=== PATIENT | male | born 1965 | race African-American/Black ===

== ENCOUNTER 2018-09-24 09:30 | Emergency (ER) | payer MEDICARE, MEDICAID ==
[~2018-09-24] VITALS: Ht 185.4 cm; Wt 85.0 kg
[2018-09-24] MEDS ORDERED: SODIUM CHLORIDE 0.9% 1,000 ML IV ONE ×2 (11:05→12:53)
[2018-09-24 12:41] LABS: CHLORIDE 99 mEq/L (98-107)
[2018-09-24] MEDS ORDERED: IBUPROFEN 600MG TABLET PO STA (12:53)
[2018-09-24] MEDS ORDERED: SODIUM CHLORIDE 0.9% 500 ML IV ONE (12:53)
[2018-09-24 12:55] LABS: BASOPHILS % 0.8 % (0.0-2.0); EOSINOPHILS % 2.5 % (0.0-5.0); HEMATOCRIT. 45.8 % (42.0-52.0); HEMOGLOBIN. 15.1 g/dL (14.0-18.0); LYMPHOCYTES % 42.7 % (20.0-50.0); MEAN CORPUSCULAR HEMOGLOBIN 25.7 pg (28.0-32.0); MEAN CORPUSCULAR VOLUME 77.9 fL (80.0-94.0); MEAN PLATELET VOLUME 8.6 fl (7.4-10.4); MONOCYTES % 8.9 % (2.0-8.0); NEUTROPHILS % 45.1 % (40.0-76.0); PLATELET 240 x1000/uL (130-400); RED BLOOD CELL COUNT 5.88 mill/uL (4.7-6.1); RED CELL DISTRIBUTION WIDTH 13.6 % (11.6-14.6)
[2018-09-24] MEDS ORDERED: KCL 10MEQ/50ML PREMIX 50 ML IV ONE (13:00)
[2018-09-24] MEDS ORDERED: INSULIN REGULAR (HUMULIN R) UD 100 UNITS/ML SYR IV ONE (13:00)
[2018-09-24] MEDS ORDERED: POTASSIUM CHLORIDE 20MEQ TABLET SR PO ONE (13:00)
[2018-09-24] MEDS ORDERED: INSULIN REGULAR (HUMULIN R) 300UNITS/3ML IV NR (14:15)
[2018-09-24 15:37] VITALS: BP 145/82
== END 2018-09-24 16:15 | disposition home or self-care (01) ==
LOC: ER 10:17
DX: M79.671 Pain in right foot (principal); E11.9 Type 2 diabetes mellitus without complications; F20.9 Schizophrenia, unspecified; Z87.891 Personal history of nicotine dependence
CPT/HCPCS: 36415; 73610; 73630; 80053; 82962; 85025; 96374; 99284; J1815; J3480; J7030; J7040